=== PATIENT | female | born 1990 | race Hispanic/Latino ===

== ENCOUNTER 2017-03-03 11:07 | Day surgery (SDC) | payer OTHER ==
[2017-03-01 14:32] VITALS: BMI 23.9
[2017-03-03 11:39] VITALS: RESP 18; O2SAT 100
[2017-03-03 12:15] LABS: HEMATOCRIT 41.1 % (34.0-47.0); MEAN CELL VOLUME 94.2 fl (81.0-99.0); MEAN CORPUSCULAR HEMOGLOBIN 30.6 pg (27.0-31.0); MEAN CORPUSCULAR HGB CONC 32.5 g/dL (33.0-37.0); RED CELL DISTRIBUTION WIDTH 13.2 % (11.5-14.5); WHITE BLOOD COUNT 5.6 K/uL (4.8-10.8)
[2017-03-03] MEDS ORDERED: Bupivacaine 0.5% Inj(30mL) ONE (12:52)
[2017-03-03] MEDS ORDERED: Lidocaine 1% Inj (20ml) ONE (12:52)
[2017-03-03] MEDS ORDERED: Chlorhexidine Gluconate 2OZ GEL TP ONE (13:03)
[2017-03-03] MEDS ORDERED: Lactated Ringer's 1,000 ML IV ONE (13:40)
[2017-03-03] MEDS ORDERED: Midazolam 2 MG/2 ML VIAL ONE ×2 (13:42→13:46)
[2017-03-03] MEDS ORDERED: Propofol 10 mg/ml Inj (20 ML) ONE ×2 (13:42→13:52)
[2017-03-03] MEDS ORDERED: Bupivacaine 0.5% 50 ML IJ ONE (13:52)
[2017-03-03] MEDS ORDERED: Lactated Ringer's 1,000 ML IV SCH (15:00)
[2017-03-03] MEDS ORDERED: Acetaminophen-Codeine 300/30 mg Tab PO PRN (15:05)
[2017-03-03] MEDS ORDERED: Acetaminophen-Codeine 300/30 mg Tab PO ONE (15:40)
[2017-03-03 16:51] VITALS: BP 133/76; PULSE 68; TEMP 97.8
--- NOTE | 2017-03-03 18:39 | PCM.SURG1 ---
Surgeon's Initial Post Op Note - Surgeon's Notes Surgeon: bhanu garcia md Core Blower: none Type of Anesthesia: IV Sedation, Local Pre-Operative Diagnosis: vaginal cyst. Dysparunia Operative Findings: cystic mass on clitoris. otherwise normal external female genatalia Post-Operative Diagnosis: Vaginal cyst. Dysparunia Operation Performed: Excision of Vaginal cyst Specimen/Specimens Removed: cyst wall and content Estimated Blood Loss: EBL {In ML}: 5 Blood Products Given: N/A Drains Used: No Drains Post-Op Condition: Good Date of Surgery/Procedure: 03/03/17 Time of Surgery/Procedure: 15:00
--- NOTE | 2017-03-03 18:43 | PCM.OP ---
Operative Report - Operative Report Date of Surgery/Procedure: 03/03/17 Time of Surgery/Procedure: 15:00 Surgeon: Noemy Miller MD Greens Or Grounds Superintendent: none Anesthesia/Sedation: IV sedation Pre-Operative Diagnosis: Vaginal Cyst. Dysparunia Post-Operative Diagnosis: Vaginal Cyst. Dysparunia Indication for Surgery: worsening pain with intercourse due to a cyst mass on the clitoris, growing in size. Operative Findings: midline vaginal cystic mass on clitoris. otherwise normal anatomy noted. Procedure/Operation Description: Excision of vaginal cystic mass on clitoris. primary closure completed. . Detailed operative note. 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 This cyst has been growing over several months worsening in symptoms and pressure, patient is reporting severe dyspareunia, and inability to wear tight clothing causing pain on contact. Patient failed conservative management several months including antibiotics and analgesics. Decision was made to proceed with excision of vaginal cystic mass. Following proper consents and detailed description of the procedure including associated risks with this surgical procedure including but not limited to; recurrence of cyst mass growth, infection, bleeding, possible loss of superficial sensory sensation following the excision. The patient was taken to the operating room, identified properly, placed in dorsal lithotomy position, legs were placed in adjustable Zac stirrups, she was prepped and draped appropriately for vaginal excision of cyst. Exam under anesthesia revealed normal external genitalia otherwise, midline cystic mass over the clitoris approximately 0.7 cm in diameter, mobile cyst, right internal content possibly calcified. Course percent Marcaine was utilized to inject the incision site approximately 7 mL was utilized. A lateral small incision was made with a scalpel approximately 3- 4 mm, sharp and blunt dissection utilized to enucleate the cyst, which was sent to pathology labeled appropriately. 4-0 Vicryl suture material was utilized to close the small incision in interrupted fashion with excellent hemostasis and excellent cosmesis. Patient tolerated the procedure well and was taken to recovery room in stable condition. Prior to incision patient received prophylactic antibiotics, prior to closure sponge lap and needle counts were correct 2. Estimated Blood Loss: 5 Blood Replaced: none Sponge/Instrument Count: corect times 2 Drains: none Complications: none Specimen: cyst wall and content Discharge & Condition: same day discharge once criteria met.
== END 2017-03-03 16:55 | disposition home or self-care (01) ==
LOC: H.OPSURG 11:07
PROVIDERS: ATTEND Obstetrics & Gynecology
DX: N89.8 Other specified noninflammatory disorders of vagina (principal); N94.10 Unspecified dyspareunia
CPT/HCPCS: 11402; 36415; 85027; 88305; J0690; J2001; J2250; J2704; J3010; J7030; J7120